=== PATIENT | female | born 1985 | race Caucasian/White ===

== ENCOUNTER 2018-10-22 08:34 | Emergency (ER) | payer BC ==
[2018-10-22] MEDS ORDERED: Meclizine TAB* 12.5 MG PO ONE (08:58)
[2018-10-22] MEDS ORDERED: Ondansetron ODT TAB* 4 MG PO ONE (08:58)
--- NOTE | 2018-10-22 09:06 | ED ---
Dizziness - HPI Summary HPI Summary: The patient is a 33 year old F presenting to [facility] accompanied by her and with a chief complaint of a cold for one week. The pt reported that the cold has not improved with OTC medications and has progressively gotten worse since the onset. The pt reports that she is unable to ambulate without vomiting , is suffering from vertigo since yesterday at 10, and has lost her hearing in her R ear. The patient rates the nausea an 8/10 in severity. She also reports being fatigued, weakness, and congestion with post nasal drip, photophobia, nausea, and ringing in her R ear. She reports that movement and light aggravate her vertigo and cause dizziness which leads to vomiting. She also reports that rest, closing her eyes, and decreased light help to alleviate the sensation of dizziness. - History Of Current Complaint Chief Complaint: EDDizziness Stated Complaint: POSSIBLE VERTIGO Time Seen by Provider: 10/22/18 08:44 Hx Obtained From: Patient Onset/Duration: Still Present, Suddenly - yesterday at 10 am Timing: Constant Severity Initially: Moderate Severity Currently: Severe Character: Room Spinning, Weak, Dizzy Aggravating Factor(s): Position Change, Other - ambulation Alleviating Factor(s): Lying Down, Closing Eyes, Other - Reduced light Associated Signs And Symptoms: Positive: Nausea, Vomiting, Tinnitus, Visual Changes - spinning room, Fever, Inability to Walk, Other: - Positive: congestion , post nasal drip, fatigue, weakness, photophobia, dizziness - Allergies/Home Medications Allergies/Adverse Reactions: Allergies Allergy/AdvReac Type Severity Reaction Status Date / Time No Known Allergies Allergy Verified 10/22/18 08:40 Home Medications: Home Medications Citalopram Hydrobromide [Citalopram HBr] 20 mg PO DAILY 10/22/18 [History Confirmed 10/22/18] PMH/Surg Hx/FS Hx/Imm Hx Previously Healthy: No Endocrine/Hematology History: Denies: Hx Diabetes Cardiovascular History: Denies: Hx Hypertension EENT History: Reports: Other - NEGATIVE: Vertigo Infectious Disease History: No Infectious Disease History: Denies: Traveled Outside the [place] in Last 30 Days - Family History Known Family History: Positive: Cardiac Disease - Social History Alcohol Use: None Hx Substance Use: No Substance Use Type: Reports: None Hx Tobacco Use: No Smoking Status (MU): Never Smoked Tobacco Review of Systems Positive: Fever, Fatigue, Other - POSITIVE: dizziness Positive: Photophobia, Other - POSITIVE: room spinning Positive: Nasal Discharge, Other - POSITIVE: post nasal drip, tinnitus, congestion Positive: Vomiting, Nausea Positive: Weakness All Other Systems Reviewed And Are Negative: Yes Physical Exam - Summary Physical Exam Summary: Appearance: The patient is well-nourished in no acute distress and in no acute pain. Skin: The skin is warm and dry and skin color reflects adequate perfusion. HEENT: The head is normocephalic and atraumatic. The pupils are equal and reactive. The conjunctivae are clear and without drainage. Nares are patent and without drainage. Mouth reveals moist mucous membranes and the throat is without erythema and exudate. The external ears are intact. The ear canals are patent and without drainage. The tympanic membranes are intact and have fluid behind her R TM Neck: The neck is supple with full range of motion and non-tender. There are no carotid bruits. There is no neck vein distension. Respiratory: Chest is non-tender. Lungs are clear to auscultation and breath sounds are symmetrical and equal. Cardiovascular: Heart is regular rate and rhythm. There is no murmur or rub auscultated. There is no peripheral edema and pulses are symmetrical and equal. Abdomen: The abdomen is soft and non-tender. There are normal bowel sounds heard in all four quadrants and there is no organomegaly palpated. Musculoskeletal: There is no back tenderness noted. Extremities are non-tender with full range of motion. There is good capillary refill. There is no peripheral edema or calf tenderness elicited. Neurological: Patient is alert and oriented to person, place and time. The patient has symmetrical motor strength in all four extremities. Cranial nerves are grossly intact. Deep tendon reflexes are symmetrical and equal in all four extremities. Psychiatric: The patient has an appropriate affect and does not exhibit any anxiety or depression. Triage Information Reviewed: Yes Vital Signs On Initial Exam: Initial Vitals Temp Pulse Resp BP Pulse Ox 97.1 F 74 20 130/85 99 10/22/18 08:37 10/22/18 08:37 10/22/18 08:37 10/22/18 08:37 10/22/18 08:37 Vital Signs Reviewed: Yes Diagnostics - Vital Signs Vital Signs Temp Pulse Resp BP Pulse Ox 10/22/18 08:53 17 06/06/19 08:50 66 12 109/74 100 10/22/18 08:48 15 10/22/18 08:37 97.1 F 74 20 130/85 99 - Laboratory Lab Statement: Any lab studies that have been ordered have been reviewed, and results considered in the medical decision making process. Re-Evaluation - Re-Evaluation First Eval Re-Evaluation Time: 12:30 Change: Improved Comment: Pt was ambulated with assistance but could not make it to the door. Second Eval Re-Evaluation Time: 15:30 Change: Improved Comment: Pt was informed of discharge plan and is agreeable. She will be instructed to follow up with her PCP in 2-3 days and to return to the ED with any new or worsening symptoms. Dizzy Course/Dx - Course Course Of Treatment: Ms. Coates presented with a peripheral vertigo. She's been having URI symptoms for about a week and developed right ear pain and tinnitus today. She was treated symptomatically here in the emergency department with some improvement with meclizine, more improvement with Ativan and even more improvement with Decadron. She was nontoxic in appearance with stable vitals. Her right TM is bulging with fluid behind it. This may all be viral labyrinthitis however with fluid present I am going to decongest her and give her antibiotics. - Diagnoses Provider Diagnoses: Acute labyrinthitis, Otitis media - Provider Notifications Time Discussed With Above Provider: 13:46 Instructed by Provider To: Other - Discussed case with Dr Vega, Neurologist, about the pt's case. Recommended ABX and observation. Discharge - Sign-Out/Discharge Documenting (check all that apply): Patient Departure - discharge Patient Received Moderate/Deep Sedation with Procedure: No - Discharge Plan Condition: Stable Disposition: HOME Prescriptions: Amoxicillin 875 mg PO TID #30 tablet Loratadine/Pseudoephedrine [Claritin-D 12 Hour Tablet] 1 each PO BID #10 tab.er.12h Meclizine TAB* [Antivert 12.5 TAB*] 25 mg PO TID #20 tab Patient Education Materials: Labyrinthitis (ED), Vertigo (ED), Ear Infection ( ED) Referrals: Maylin Gary [employer] IN[employer]ST[employer]ATOR [Primary Care Provider] - Additional Instructions: Please return to the Emergency Department with any new or worsening symptoms. Please follow up with you primary care physician in 2-3 days. - Billing Disposition and Condition Condition: STABLE Disposition: Home - Attestation Statements Document Initiated by Israel: Yes Documenting Scribe: Man De La Rosa Provider For Whom Israel is Documenting (Include Credential): Fernandez Perez MD Scribe Attestation: Man Aparicio, scribed for Fernandez Perez MD on 10/22/18 at 1551. Scribe Documentation Reviewed: Yes Provider Attestation: The documentation as recorded by the Man enriquez accurately reflects the service I personally performed and the decisions made by me, Fernandez Perez MD Status of Scribe Document: Viewed
[2018-10-22] MEDS ORDERED: LORazepam TAB(*) 1 MG PO ONE (11:06)
[2018-10-22] MEDS ORDERED: Dexamethasone TAB* 4 MG PO ONE (13:55)
[2018-10-22 15:41] VITALS: BP 114/66
== END 2018-10-22 15:49 | disposition home or self-care (01) ==
LOC: ED 08:34
DX: H83.09 Labyrinthitis, unspecified ear (principal); H66.90 Otitis media, unspecified, unspecified ear
CPT/HCPCS: 99284; A9270-GY; J8540